=== PATIENT | male | born 1955 | race Caucasian/White ===

== ENCOUNTER 2017-04-28 11:38 | Inpatient (IN) | payer MEDICARE, MEDICAID ==
[~2017-04-28] VITALS: Ht 175.3 cm; Wt 110.0 kg
[~2017-04-28 11:38] MED LIST: ALBU8HFA PO; ALPR-624 PO; METO25TA6 PO; NICO-630 TOP; OLAN10TA3 PO
[2017-04-28 13:02] LABS: BASOPHILS % (AUTO) 0.7 % (0-1); EOSINOPHILS # (AUTO) 0.5 X10'3 (0-0.9); EOSINOPHILS % (AUTO) 7.7 % (0-6); HEMATOCRIT 41.8 % (42.0-52.0); HEMOGLOBIN 14.6 g/dl (14.0-17.9); LYMPHOCYTES # (AUTO) 2.2 X10'3 (1.1-4.8); LYMPHOCYTES % (AUTO) 34.6 % (21-51); MEAN CORPUSCULAR HEMOGLOBIN 30.4 PG (27.0-31.0); MEAN CORPUSCULAR VOLUME 86.9 FL (78-98); MEAN PLATELET VOLUME 7.2 FL (7.4-10.4); MONOCYTES # (AUTO) 0.5 X10'3 (0-0.9); NEUTROPHILS # (AUTO) 3.2 X10'3 (1.8-7.7); PLATELET COUNT 229 X10'3 (140-440); RED BLOOD COUNT 4.81 X10'6 (4.70-6.10); WHITE BLOOD COUNT 6.5 X10'3 (4.5-11.0)
[2017-04-28 13:19] LABS: ALANINE AMINOTRANSFERASE 36 U/L (12-78); ALKALINE PHOSPHATASE 93 IU/L (46-116); ANION GAP 10 (8-16); ASPARTATE AMINO TRANSFERASE 16 U/L (10-37); BILIRUBIN,TOTAL 0.6 MG/DL (0.1-1.0); BLOOD UREA NITROGEN 15 MG/DL (7-18); BUN/CREATININE RATIO 15.3 (5.4-32.0); CHLORIDE 108 MMOL/L (99-107); CREATININE 0.98 MG/DL (0.60-1.10); ETHANOL < 0.010 GM/DL (0.0-0.010); GLUCOSE 116 MG/DL (70-104); POTASSIUM 4.2 MMOL/L (3.5-5.1); SODIUM 144 MMOL/L (135-145); TOTAL CARBON DIOXIDE 26.3 MMOL/L (24-32); eGFR 77 ML/MIN
[2017-04-28 13:39] LABS: URINE AMPHETAMINE SCREEN NEGATIVE (Neg); URINE BARBITUATE SCREEN NEGATIVE (Neg); URINE BENZODIAZEPINES SCREEN POSITIVE (Neg); URINE CANNABINOID SCREEN NEGATIVE (Neg); URINE COCAINE SCREEN NEGATIVE (Neg); URINE METHADONE SCREEN NEGATIVE (Neg); URINE OPIATE SCREEN NEGATIVE (Neg); URINE PHENCYCLIDINE SCREEN NEGATIVE (Neg)
[2017-04-28 13:45] LABS: CLARITY,URINE CLEAR (Clear); COLOR,URINE YELLOW (Yellow); GLUCOSE, URINE NEGATIVE (Neg); KETONES,URINE NEGATIVE (Neg); LEUKOCYTE ESTERASE ,URINE NEGATIVE (Neg); NITRITES, URINE NEGATIVE (Neg); OCCULT BLOOD,URINE NEGATIVE (Neg); PROTEIN,URINE NEGATIVE (Neg); UA COLLECTION TYPE NON-SPECIFIED; UROBILINOGEN,URINE 0.2 E.U/dL (0.2-1.0)
[2017-04-28] MEDS: nitroGLYCERIN 0.4mg SUBLingual tab SL PRN ×3 (14:19→16:35)
[2017-04-28 15:13] LABS: TROPONIN I 0.12 NG/ML (0.0-0.05)
[2017-04-28] MEDS ORDERED: morphine 4 MG/ML inj SYRINge IV ONE (15:15)
[2017-04-28] MEDS ORDERED: aspirin 325mg tablet PO ONE (15:15)
[2017-04-28] MEDS ORDERED: magnesium hydroxide 30ml (MOM) UD suspension PO PRN (16:00)
[2017-04-28] MEDS ORDERED: acetaminophen 325mg tablet PO PRN (16:00)
[2017-04-28] MEDS ORDERED: mag hydrox/Alum hydrox/simeth 30ml oral suspension PO PRN (16:00)
[2017-04-28] MEDS: normal saline 1000ml 1,000 ML IV SCH (16:34)
[2017-04-28] MEDS: HYDROcodone/acetaminophen 5mg/325mg tablet PO PRN (17:50)
[2017-04-28] MEDS: nitroGLYCERIN 1gm ointment UD TP PRN (17:50)
[2017-04-28] MEDS ORDERED: nicotine 14mg patch - 24hr TD ONE (18:00)
[2017-04-28] MEDS: heparin, porcine 5000 units/ml vial SQ SCH (20:00)
[2017-04-28] MEDS: LORazepam 2 mg/ml vial IV PRN (20:20)
[2017-04-29] MEDS: nitroGLYCERIN 1gm ointment UD TP PRN ×2 (00:58→07:48)
[2017-04-29] MEDS: HYDROcodone/acetaminophen 5mg/325mg tablet PO PRN (00:59)
[2017-04-29 01:25] LABS: ALANINE AMINOTRANSFERASE 34 U/L (12-78); ALBUMIN 3.2 G/DL (3.4-5.0); ALKALINE PHOSPHATASE 72 IU/L (46-116); ANION GAP 8 (8-16); ASPARTATE AMINO TRANSFERASE 12 U/L (10-37); BILIRUBIN,TOTAL 0.4 MG/DL (0.1-1.0); BLOOD UREA NITROGEN 22 MG/DL (7-18); BUN/CREATININE RATIO 21.8 (5.4-32.0); CALCIUM 8.4 MG/DL (8.5-10.1); CHLORIDE 108 MMOL/L (99-107); CREATININE 1.01 MG/DL (0.60-1.10); GLUCOSE 134 MG/DL (70-104); POTASSIUM 3.8 MMOL/L (3.5-5.1); SODIUM 144 MMOL/L (135-145); TOTAL CARBON DIOXIDE 28.1 MMOL/L (24-32); TOTAL PROTEIN 6.4 G/DL (6.4-8.2); eGFR 75 ML/MIN
[2017-04-29] MEDS: normal saline 1000ml 1,000 ML IV SCH ×3 (02:57→22:52)
[2017-04-29] MEDS: LORazepam 2 mg/ml vial IV PRN ×4 (03:18→19:21)
[2017-04-29] MEDS: heparin, porcine 5000 units/ml vial SQ SCH ×2 (08:00→21:52)
[2017-04-29 08:18] LABS: BASOPHILS % (AUTO) 0.7 % (0-1); EOSINOPHILS # (AUTO) 0.5 X10'3 (0-0.9); EOSINOPHILS % (AUTO) 7.7 % (0-6); HEMATOCRIT 38.4 % (42.0-52.0); HEMOGLOBIN 13.5 g/dl (14.0-17.9); LYMPHOCYTES # (AUTO) 1.8 X10'3 (1.1-4.8); LYMPHOCYTES % (AUTO) 29.3 % (21-51); MEAN CORPUSCULAR HEMOGLOBIN 30.5 PG (27.0-31.0); MEAN CORPUSCULAR HGB CONC 35.1 % (33.0-36.5); MEAN PLATELET VOLUME 7.5 FL (7.4-10.4); MONOCYTES # (AUTO) 0.5 X10'3 (0-0.9); MONOCYTES % (AUTO) 8.5 % (2-12); NEUTROPHILS # (AUTO) 3.3 X10'3 (1.8-7.7); NEUTROPHILS % (AUTO) 53.8 % (42-75); PLATELET COUNT 207 X10'3 (140-440); RED BLOOD COUNT 4.42 X10'6 (4.70-6.10); RED CELL DISTRIBUTION WIDTH 14.7 % (11.5-14.5); WHITE BLOOD COUNT 6.2 X10'3 (4.5-11.0)
[2017-04-29] MEDS ORDERED: HYDROmorphone inj. 0.5 MG/0.5 ML DISP.SYRIN IV PRN (08:36)
[2017-04-29] MEDS ORDERED: regadenoson 0.4mg/5ml syringe IV ONE (09:20)
[2017-04-29] MEDS ORDERED: aminophylline 250mg/10ml inj. IV PRN (09:20)
[2017-04-29] MEDS ORDERED: metoprolol tartrate 1mg/ml inj IV PRN (09:20)
[2017-04-29] MEDS ORDERED: nitroGLYCERIN 0.4mg SUBLingual tab SL PRN (09:20)
[2017-04-29] MEDS: morphine 4 MG/ML inj SYRINge IV SCH ×4 (09:27→21:47)
[2017-04-29] MEDS ORDERED: metoprolol tartrate 25mg tablet PO SCH (09:35)
[2017-04-29 10:18] LABS: CHOL/HDL RATIO 3.3 (0.00-4.99); CHOLESTEROL 130 MG/DL (0-200); HDL CHOLESTEROL 39 MG/DL (35-60); LDL CHOLESTEROL 74 MG/DL (50-100); TRIGLYCERIDES 127 MG/DL (20-135)
[2017-04-29] MEDS: atorvastatin 20mg tablet PO SCH (10:39)
[2017-04-29] MEDS: clopidogrel 75mg tablet PO SCH (10:39)
[2017-04-29] MEDS: aspirin 81mg tab.chew PO SCH (10:40)
[2017-04-29] MEDS: pantoprazole 40mg Tablet.DR PO SCH (10:40)
[2017-04-30] MEDS: morphine 4 MG/ML inj SYRINge IV SCH ×5 (00:03→16:04)
[2017-04-30] MEDS: ondansetron/PF 4mg/2ml inj IV PRN ×2 (00:03→05:32)
[2017-04-30 05:49] LABS: BASOPHILS % (AUTO) 0.5 % (0-1); EOSINOPHILS # (AUTO) 0.4 X10'3 (0-0.9); EOSINOPHILS % (AUTO) 6.1 % (0-6); HEMOGLOBIN 13.7 g/dl (14.0-17.9); LYMPHOCYTES # (AUTO) 2.1 X10'3 (1.1-4.8); LYMPHOCYTES % (AUTO) 33.6 % (21-51); MEAN CORPUSCULAR HEMOGLOBIN 30.3 PG (27.0-31.0); MEAN CORPUSCULAR HGB CONC 34.2 % (33.0-36.5); MEAN CORPUSCULAR VOLUME 88.4 FL (78-98); MEAN PLATELET VOLUME 7.2 FL (7.4-10.4); MONOCYTES # (AUTO) 0.6 X10'3 (0-0.9); MONOCYTES % (AUTO) 9.9 % (2-12); NEUTROPHILS # (AUTO) 3.1 X10'3 (1.8-7.7); NEUTROPHILS % (AUTO) 49.9 % (42-75); PLATELET COUNT 204 X10'3 (140-440); RED BLOOD COUNT 4.53 X10'6 (4.70-6.10); RED CELL DISTRIBUTION WIDTH 14.8 % (11.5-14.5); WHITE BLOOD COUNT 6.1 X10'3 (4.5-11.0)
[2017-04-30 06:35] LABS: ALANINE AMINOTRANSFERASE 36 U/L (12-78); ALBUMIN 3.5 G/DL (3.4-5.0); ALKALINE PHOSPHATASE 78 IU/L (46-116); ANION GAP 9 (8-16); ASPARTATE AMINO TRANSFERASE 17 U/L (10-37); BILIRUBIN,TOTAL 0.6 MG/DL (0.1-1.0); BLOOD UREA NITROGEN 15 MG/DL (7-18); BUN/CREATININE RATIO 16.5 (5.4-32.0); CALCIUM 8.3 MG/DL (8.5-10.1); CHLORIDE 108 MMOL/L (99-107); CREATININE 0.91 MG/DL (0.60-1.10); GLUCOSE 107 MG/DL (70-104); POTASSIUM 4.5 MMOL/L (3.5-5.1); SODIUM 145 MMOL/L (135-145); TOTAL CARBON DIOXIDE 27.9 MMOL/L (24-32); eGFR 84 ML/MIN
[2017-04-30] MEDS: clopidogrel 75mg tablet PO SCH (07:56)
[2017-04-30] MEDS: pantoprazole 40mg Tablet.DR PO SCH (07:56)
[2017-04-30] MEDS: atorvastatin 20mg tablet PO SCH (07:56)
[2017-04-30] MEDS: aspirin 81mg tab.chew PO SCH (07:56)
[2017-04-30] MEDS: normal saline 1000ml 1,000 ML IV SCH (07:59)
[2017-04-30] MEDS: heparin, porcine 5000 units/ml vial SQ SCH (08:00)
[2017-04-30] MEDS: LORazepam 2 mg/ml vial IV PRN ×2 (08:11→14:22)
[2017-04-30] MEDS ORDERED: isosorbide mononitrate 30mg tab.SR.24H PO SCH (09:45)
[2017-04-30] MEDS ORDERED: oxyCODONE/APAP 10/325mg tablet PO PRN (16:05)
[2017-04-30] MEDS ORDERED: ATOR20TA66 PO (16:35)
[2017-04-30] MEDS ORDERED: CLOP75TA35 PO (16:35)
[2017-04-30] MEDS ORDERED: ASPI-1265 PO (16:35)
[2017-04-30] MEDS ORDERED: ISOS30TA6 PO (16:35)
[2017-04-30] MEDS ORDERED: PANT40TA4 PO (16:35)
[2017-04-30] MEDS ORDERED: PER10325T PO (16:35)
[2017-04-30 16:49] VITALS: BP 138/98
== END 2017-04-30 18:30 | DRG 311 ==
LOC: ER 11:39 → ED HOLD 15:59
PROVIDERS: ADMIT Family Medicine; ATTEND Family Medicine
DX: I24.9 Acute ischemic heart disease, unspecified (principal); R45.851 Suicidal ideations; E78.00 Pure hypercholesterolemia, unspecified; E78.5 Hyperlipidemia, unspecified; F31.9 Bipolar disorder, unspecified; I10 Essential (primary) hypertension; I25.10 Atherosclerotic heart disease of native coronary artery without angina pectoris; I45.10 Unspecified right bundle-branch block; J44.9 Chronic obstructive pulmonary disease, unspecified; F29 Unspecified psychosis not due to a substance or known physiological condition; G89.29 Other chronic pain; M54.9 Dorsalgia, unspecified; F17.210 Nicotine dependence, cigarettes, uncomplicated; F15.90 Other stimulant use, unspecified, uncomplicated; Z95.5 Presence of coronary angioplasty implant and graft; Z59.0 Homelessness; Z88.0 Allergy status to penicillin; Z79.899 Other long term (current) drug therapy; Z87.19 Personal history of other diseases of the digestive system; Z71.6 Tobacco abuse counseling
CPT/HCPCS: 36415; 80053; 80061; 80305; 80320; 81003; 84484; 85025; 93005; 96374; 99285; J1644; J2060; J2270; J2405; J7030

== ENCOUNTER 2019-04-17 08:17 | Outpatient (CLI) | payer MEDICARE, MEDICAID ==
[~2019-04-17] VITALS: Ht 175.3 cm; Wt 95.3 kg
[~2019-04-17 08:17] MED LIST changes: -ALPR-624 PO; +ALPR0.5T9 PO; +ASPI-1265 PO; +ATOR20TA66 PO; +CLOP75TA35 PO; +FURO20TA4 PO; +ISOS30TA6 PO; -NICO-630 TOP; -OLAN10TA3 PO; +PANT40TA4 PO; +PER10325T PO; +QUET100T33 PO; +VORT10TA PO
[2019-04-17] MEDS ORDERED: albuterol 2.5 MG/3 ML nebule NEB PRN (09:05)
[2019-04-17 09:06] LABS: ABG BASE EXCESS 1.8 mmol/L (-2.0-3.0); ABG HCO3 23.9 mmol/L (22.0-26.0); ABG OXYGEN SATURATION 97.5 % (95-98); ABG PCO2 (T) 30.7 mmHg (35.0-45.0); ABG PH (T) 7.509 (7.350-7.450); ABG PO2 (T) 94.1 mmHg (83-108); ALLEN'S TEST POSITIVE; FCOHb 3.7 % (0.5-1.5); FMetHb 0.1 % (0.3-1.12); FO2Hb 93.8 % (94-100); TOTAL HEMOGLOBIN 15.5 G/dl (14.0-17.9)
== END 2019-04-17 23:59 | disposition home or self-care (01) ==
LOC: RT 08:17 → EDBD 09:00 → RT 23:59
PROVIDERS: ATTEND Family Medicine
DX: R06.02 Shortness of breath (principal); I73.9 Peripheral vascular disease, unspecified; R10.9 Unspecified abdominal pain
CPT/HCPCS: 36600; 76700; 82803; 85018; 93922; 94060; 94760

== ENCOUNTER 2021-09-29 09:40 | Day surgery (SDC) | payer MEDICARE, MEDICAID ==
[2021-09-29] VITALS (8 sets, daily range): BP systolic 123–144; BP diastolic 61–83
[~2021-09-29] VITALS: Ht 175.3 cm; Wt 92.2 kg
[~2021-09-29 09:40] MED LIST changes: +CLOP75TA34 PO; -CLOP75TA35 PO; -ISOS30TA6 PO; +ISOS30TA84 PO; +LOP25T PO; -METO25TA6 PO; -PANT40TA4 PO; +PANT40TA54 PO; -QUET100T33 PO; +QUET100T34 PO
[2021-09-29] MEDS ORDERED: fentaNYL/PF 50MCG/1 ML 2ML syringe ONE (10:11)
[2021-09-29] MEDS ORDERED: MIDAZolam 1 MG/ML 5ML VIAL ONE (10:11)
[2021-09-29] MEDS ORDERED: OMEP20CA16 PO (10:15)
[2021-09-29] MEDS ORDERED: LURA40TA2 PO (10:15)
[2021-09-29] MEDS ORDERED: ALPR-143 (10:15)
[2021-09-29] MEDS ORDERED: METF-438 PO (10:15)
[2021-09-29] MEDS ORDERED: SEMA0.25 (10:15)
[2021-09-29] MEDS ORDERED: ASPI-1397 PO (10:15)
[2021-09-29] MEDS ORDERED: NITR0.4T51 (10:15)
[2021-09-29] MEDS ORDERED: CLOP75TA15 PO (10:16)
[2021-09-29] MEDS ORDERED: ALBU8HFA PO (10:17)
[2021-09-29] MEDS ORDERED: ISOS60TA71 PO (10:18)
[2021-09-29] MEDS ORDERED: METO25TA6 PO (10:19)
[2021-09-29] MEDS ORDERED: QUET100T34 PO (10:21)
== END 2021-09-29 12:55 | disposition home or self-care (01) ==
LOC: GI LAB 09:40
PROVIDERS: ATTEND Internal Medicine Gastroenterology
DX: D12.2 Benign neoplasm of ascending colon (principal); D12.3 Benign neoplasm of transverse colon; D12.5 Benign neoplasm of sigmoid colon; K62.1 Rectal polyp; K64.8 Other hemorrhoids; Z86.010 Personal history of colon polyps; Z79.899 Other long term (current) drug therapy; Z98.890 Other specified postprocedural states
CPT/HCPCS: 45380; 45385; C1773; G0500; J2250; J3010; J7030; Z7512; 88305; 99152; 99153; A4620